=== PATIENT | female | born 1945 | race Caucasian/White ===

== ENCOUNTER 2016-11-11 08:46 | Emergency (ER) | payer MEDICARE, OTHER ==
[2016-11-11 08:59] VITALS: TEMP 97.9
[2016-11-11] MEDS ORDERED: SODIUM CHLORIDE 0.9% (FLUSH) 10 ML SYG IV PRN (09:48)
--- NOTE | 2016-11-11 09:48 | ED.PDOC ---
History of Present Illness - General Chief Complaint: Chest Pain/AR Stated Complaint: chest tightness Time Seen by Provider: 11/11/16 09:41 Source: patient Exam Limitations: no limitations - History of Present Illness Initial Comments: Dulce Clifton 70 y/o female stated that she fell out of a metal chair yesterday and left lower leg hit the metal handle of the chair denies neck/head injury but with pain on left thigh and hips after incident with bruising on the leg left.Then at about 0730 hour this morning felt chest pressure got diaphoretic but no sob which had gotten steady decided to come to emergency room. Timing/Duration: 1-3 hours Severity: moderate Location: substernal Activities at Onset: activity Prior Chest Pain/Cardiac Workup: no prior chest pain, no prior cardiac workup Improving Factors: nothing Worsening Factors: nothing Nitro Today/Relief: no nitro taken today, 0.4 mg x 1, provided by ED Aspirin Treatment Today: no aspirin today, 325 mg x 1, provided by ED Associated Symptoms: diaphoresis Allergies/Adverse Reactions: Allergies Penicillins Allergy (Severe, Verified 11/11/16 10:09) Sulfa Drugs Allergy (Severe, Verified 11/11/16 10:09) Home Medications: Ambulatory Orders Tramadol HCl 50 mg PO Q4HR PRN #20 tab 11/11/16 Review of Systems - Review of Systems Constitutional: States: no symptoms reported EENTM: States: no symptoms reported Respiratory: States: no symptoms reported Cardiology: States: see HPI Gastrointestinal/Abdominal: States: no symptoms reported Genitourinary: States: no symptoms reported Musculoskeletal: States: no symptoms reported Skin: States: no symptoms reported Neurological: States: no symptoms reported Endocrine: States: no symptoms reported Hematologic/Lymphatic: States: no symptoms reported Past Medical History (General) - Patient Medical History Hx Seizures: No Hx Stroke: No Hx Asthma: No Hx of COPD: No Hx Cardiac Disorders: No Hx Congestive Heart Failure: No Hx Pacemaker: No Hx Hypertension: No Hx Diabetes: No Hx MRSA: No Surgical History: cholecystectomy, other - hysterectomy,breast augmentation - Vaccination History Hx Influenza Vaccination: No Hx Pneumococcal Vaccination: Yes - Social History Hx Tobacco Use: Yes - quit 40 years ago Hx Alcohol Use: No Hx Substance Use: No Hx Physical Abuse: No Hx Emotional Abuse: No - Activities of Daily Living Patient Lives Alone: No - family Grooming Ability: Independent Eating (Feeding) Ability: Independent Toileting Ability: Independent Family Medical History - Family History Mother Living Status: Hx Family Asthma: Yes - copd-mom Hx Cardiac Disease: Yes - dad-CAD Physical Exam - Physical Exam General Appearance: Alert, Comfortable, No apparent distress Eyes, Ears, Nose, Throat Exam: PERRL/EOMI, normal ENT inspection, TMs normal, pharynx normal Neck: non-tender, full range of motion, supple Respiratory: chest non-tender, lungs clear, normal breath sounds, no respiratory distress Cardiovascular/Chest: normal peripheral pulses, regular rate, rhythm, no edema, no gallop, no murmur Peripheral Pulses: radial,right: 1+, radial,left: 1+ Gastrointestinal/Abdominal: normal bowel sounds, non tender, soft, no organomegaly Extremity: normal range of motion, non-tender, no pedal edema, no calf tenderness Neurologic: no motor/sensory deficits, alert, normal mood/affect, oriented x 3 Skin Exam: warm/dry, rash - ecchymosys left bttocks and thigh Progress - Progress Progress: 11/11/16 10:04 Vital Signs - 8 hr 11/11/16 11/11/16 08:55 09:49 Temperature 97.9 F Pulse Rate 85 Pulse Rate [ 90 89 Right Brachial] Respiratory 16 Rate Blood Pressure 128/74 [Right Arm] O2 Sat by Pulse 97 Oximetry - Results/Orders Results/Orders: 11/11/16 09:48 Telemetry .ONCE EKG Stat Pulse Ox Stat Pulse Oximetry Assessment DAILY 11/11/16 09:55 B-TYPE NATRIURETIC PEPTIDE/BNP Stat CARDIAC PANEL,ER Stat HEPATIC FUNCTION PANEL Stat 11/11/16 10:04 Femur,Left [RAD] Stat Hip,Right 2 Views [RAD] Stat Pelvis [RAD] Stat 11/11/16 10:15 Hip,Left 2 Views [RAD] Stat Laboratory Results - last 24 hr 11/11/16 11/11/16 09:54 09:55 WBC 6.8 RBC 4.99 Hgb 14.8 Hct 44.2 MCV 88.6 MCH 29.8 MCHC 33.6 RDW 12.9 Plt Count 214 MPV 8.7 Absolute Neuts (auto) 4.80 Absolute Lymphs (auto) 1.50 Absolute Monos (auto) 0.40 Absolute Eos (auto) 0.10 Absolute Basos (auto) 0.00 Neutrophils % 70.9 Lymphocytes % 21.4 Monocytes % 6.2 Eosinophils % 0.9 L Basophils % 0.6 PT 10.5 INR 0.930 PTT (SP) 30.7 D-Dimer, Quantitative < 230 Sodium 141 Potassium 3.8 Chloride 106 Carbon Dioxide 27 Anion Gap 11.8 L BUN 11 Creatinine 0.45 L BUN/Creatinine Ratio 24.4 H Random Glucose 98 Serum Osmolality 280.6 Calcium 9.0 Magnesium 2.3 Total Bilirubin 0.9 Direct Bilirubin 0.1 Indirect Bilirubin 0.8 AST 17 ALT 11 Alkaline Phosphatase 61 Creatine Kinase 189 H Serum Total Protein 7.1 Albumin 4.3 Laboratory Tests 11/11/16 11/11/16 11/11/16 09:54 09:55 10:40 WBC 6.8 RBC 4.99 Hgb 14.8 Hct 44.2 MCV 88.6 MCH 29.8 MCHC 33.6 RDW 12.9 Plt Count 214 MPV 8.7 Absolute Neuts (auto) 4.80 Absolute Lymphs (auto) 1.50 Absolute Monos (auto) 0.40 Absolute Eos (auto) 0.10 Absolute Basos (auto) 0.00 Neutrophils % 70.9 Lymphocytes % 21.4 Monocytes % 6.2 Eosinophils % 0.9 L Basophils % 0.6 PT 10.5 INR 0.930 PTT (SP) 30.7 D-Dimer, Quantitative < 230 Sodium 141 Potassium 3.8 Chloride 106 Carbon Dioxide 27 Anion Gap 11.8 L BUN 11 Creatinine 0.45 L BUN/Creatinine Ratio 24.4 H Random Glucose 98 Serum Osmolality 280.6 Calcium 9.0 Magnesium 2.3 Total Bilirubin 0.9 Direct Bilirubin 0.1 Indirect Bilirubin 0.8 AST 17 ALT 11 Alkaline Phosphatase 61 Creatine Kinase 189 H CK-MB (CK-2) 1.9 CK-MB (CK-2) % Not Reportable Troponin I < 0.02 < 0.02 B-Natriuretic Peptide Cancelled Serum Total Protein 7.1 Albumin 4.3 - EKG/XRAY/CT EKG: Sinus Comments: heart rate [address] XRAY: chest - scarring no acute changes,left hip,pelvis,femur-no fractures noted Departure - Departure Clinical Impression: Chest discomfort Fall (on) (from) unspecified stairs and steps, initial encounter Qualifiers: Encounter type: initial encounter Qualified Code(s): W10.9XXA - Fall (on) (from ) unspecified stairs and steps, initial encounter Contusion of left lower extremity Qualifiers: Encounter type: initial encounter Qualified Code(s): S80.12XA - Contusion of left lower leg, initial encounter Time of Disposition: 12:01 Disposition: Discharge to Home or Self Care Condition: Good Departure Forms: ED Discharge - Pt. Copy, Patient Portal Self Enrollment Referrals: Lorezno Fihser III, MD [Primary Care Provider] - 1-2 Weeks Prescriptions: Tramadol HCl 50 mg PO Q4HR PRN #20 tab PRN Reason: Pain Home Medications: Ambulatory Orders Tramadol HCl 50 mg PO Q4HR PRN #20 tab 11/11/16 Additional Instructions: RETURN TO EMERGENCY ROOM NEEDED;FOLLOW UP WITH PRIMARY MD 11/12/2016 call for appointment
[2016-11-11] MEDS ORDERED: ASPIRIN (CHEWABLE) 81 MG TAB PO ONE (10:06)
--- NOTE | 2016-11-11 10:18 | RAD ---
EXAM DESCRIPTION: Chest,1 View CLINICAL HISTORY: 70 years Female, chest tightness COMPARISON: January 23, 2014, prior CT examination 03/16/2007 TECHNIQUE: AP portable chest. FINDINGS: Single view of the chest demonstrates chronic mild scarring in the right apical region and coarsened markings in the lung bases but very little change in comparison to previous 2014 study. Extensive pleural-parenchymal scarring in this location is evident on remote [address] and to a lesser extent in the left apical region. Heart size is normal with tortuous aortic arch with normal vascularity. No dense infiltrates or pleural effusions are noted. Some hilar retraction in a cephalad fashion consistent with apical scarring is evident but unchanged from prior remote study. IMPRESSION: Stable chest with apical pleural parenchymal scarring right greater than left but little changed from prior remote plain film and chest CTs consistent with old scarring and volume loss in the upper lung [place]. No acute cardiopulmonary decompensation is seen. Electronically signed by: Salvador Ball MD 11/11/2016 10:17 AM CDT
--- NOTE | 2016-11-11 10:36 | RAD ---
EXAM DESCRIPTION: Femur,Left CLINICAL HISTORY: 70 years Female, fall COMPARISON: None. FINDINGS: The femur is intact without fracture or dislocation. No foreign body is noted. The visualized portions of the hip and knee are unremarkable. IMPRESSION: Normal examination. Electronically signed by: Salvador Ball MD 11/11/2016 10:35 AM CDT
--- NOTE | 2016-11-11 10:38 | RAD ---
EXAM DESCRIPTION: Pelvis CLINICAL HISTORY: 70 years Female, fall COMPARISON: None. FINDINGS: The bony pelvic ring is intact with no evidence of soft tissue mass or disruption of the SI joints or symphysis pubis. The pubic initial rami and iliac wings appear intact. IMPRESSION: Renal examination. Electronically signed by: Salvador Ball MD 11/11/2016 10:37 AM CDT
--- NOTE | 2016-11-11 10:39 | RAD ---
EXAM DESCRIPTION: Hip,Left 2 Views CLINICAL HISTORY: pain COMPARISON: None Available. TECHNIQUE: AP/frog leg lateral FINDINGS: There is no bone, joint, or soft tissue abnormality. The hip is normally aligned without fracture or deformity or severe degenerative changes IMPRESSION: Normal study Electronically signed by: Salvador Ball MD 11/11/2016 10:37 AM CDT
[2016-11-11 12:34] VITALS: BP 108/64
[2016-11-11 17:41] VITALS: O2SAT 97
== END 2016-11-11 12:15 | disposition home or self-care (01) ==
LOC: ER 08:46
DX: R07.89 Other chest pain (principal); S80.12XA Contusion of left lower leg, initial encounter; Z88.0 Allergy status to penicillin; Z88.2 Allergy status to sulfonamides; Z87.891 Personal history of nicotine dependence; W07.XXXA Fall from chair, initial encounter; Y92.9 Unspecified place or not applicable

== ENCOUNTER → 2016-12-11 | Outpatient (CLI) | payer MEDICARE, OTHER | END | disposition home or self-care (01) | LOC: GMAL 11:00 | PROVIDERS: ATTEND Family Medicine | DX: D51.3 Other dietary vitamin B12 deficiency anemia (principal); R53.82 Chronic fatigue, unspecified; E55.9 Vitamin D deficiency, unspecified ==

== ENCOUNTER → 2017-09-26 | Outpatient (CLI) | payer MEDICARE, OTHER | LOC: GMATM 13:46 | PROVIDERS: ATTEND Nurse Practitioner Family | DX: N30.00 Acute cystitis without hematuria (principal) ==

== ENCOUNTER → 2017-11-10 | Outpatient (CLI) | payer MEDICARE, OTHER | LOC: GMATM 17:00 | PROVIDERS: ATTEND Nurse Practitioner Family | DX: R30.0 Dysuria (principal) ==

== ENCOUNTER → 2018-02-04 | Outpatient (CLI) | payer MEDICARE, OTHER | LOC: GMAL 13:01 | PROVIDERS: ATTEND Family Medicine | DX: D51.3 Other dietary vitamin B12 deficiency anemia (principal); R53.82 Chronic fatigue, unspecified; E55.9 Vitamin D deficiency, unspecified ==

== ENCOUNTER 2018-08-16 05:33 | Day surgery (SDC) | payer MEDICARE, OTHER ==
[2018-08-16] MEDS ORDERED: MIDAZOLAM INJ 2 MG/2 ML VIAL ONE (11:01)
[2018-08-16] MEDS ORDERED: PROPARACAINE 0.5% OPHTH SOL 15 ML BTTL LEFT_EYE ONE (11:02)
[2018-08-16] MEDS ORDERED: LIDOCAINE 1% 2 ML VIAL INJ ONE (11:17)
[2018-08-16] MEDS ORDERED: DEXAMETHASONE 0.1% OPHTH SOL 1 DROP LEFT_EYE ONE ×2 (11:22→11:35)
[2018-08-16] MEDS ORDERED: MOXIFLOXACIN HCL (OPHTH) 1 DROP DROPS LEFT_EYE ONE ×2 (11:22→11:34)
[2018-08-16] MEDS ORDERED: BRIMONIDINE 0.2% OPHTH DROPS LEFT_EYE ONE ×2 (11:23→11:35)
[2018-08-16] MEDS ORDERED: TOBRAMYCIN SULF 0.3 % OPHT SOL 1 DROP LEFT_EYE ONE ×2 (11:23→11:35)
[2018-08-16] MEDS ORDERED: TROP 1%/CYCLOPEN 1%/PHENYL 2% DROPS OPHTH ONE (11:30)
== END 2018-08-16 12:16 | disposition home or self-care (01) ==
LOC: AMB 05:33
PROVIDERS: ATTEND Ophthalmology
DX: H25.12 Age-related nuclear cataract, left eye (principal); Z88.0 Allergy status to penicillin; Z88.2 Allergy status to sulfonamides; Z79.899 Other long term (current) drug therapy
CPT/HCPCS: 00142; 66984; J2250

== ENCOUNTER → 2019-02-16 | Outpatient (CLI) | payer MEDICARE, OTHER | LOC: GMAL 11:32 | PROVIDERS: ATTEND Family Medicine | DX: R53.82 Chronic fatigue, unspecified (principal); E55.9 Vitamin D deficiency, unspecified; Z79.899 Other long term (current) drug therapy ==

== ENCOUNTER → 2019-02-23 | Outpatient (CLI) | payer MEDICARE, OTHER ==
--- NOTE | 2019-02-23 10:03 | CT ---
EXAM DESCRIPTION: Chest w/wo Contrast CLINICAL HISTORY: Other nonspecific abnormal finding of lung field COMPARISON: October 18, 2007 TECHNIQUE: Chest CT was performed without and with IV contrast. This exam was performed according to our departmental dose-optimization program, which includes automated exposure control, adjustment of the mA and/or kV according to patient size and/or use of iterative reconstruction technique. FINDINGS: Pre-IV contrast images show minimal coronary artery calcification. Small bilateral breast implants with capsular calcification. Postcontrast images show no thyroid thoracic inlet abnormality. No thoracic aortic aneurysm or dissection. The main pulmonary artery is not dilated. No mediastinal or hilar adenopathy. No pleural or pericardial effusion. No hiatal hernia or esophageal wall thickening. The central airways are clear. Mild atelectasis or scarring in the lung apices. There is a small area of less well-defined density posteriorly in the superior segment of the left lower lobe which may represent additional atelectasis versus developing pneumonia. There is a small focus of increased density in the lingular segment of left upper lobe with associated bronchiectasis suggesting that this represents scarring with a slightly nodular configuration measuring up to 7 or 8 mm diameter. No additional airspace consolidation. No lung mass. The gallbladder is surgically absent. Probable small cyst in the left hepatic lobe. Visualized portions of the upper abdomen are otherwise unremarkable. Degenerative changes in the thoracic spine at several levels. IMPRESSION: Small focus of increased density in the superior segment of the left lower lobe which could represent either atelectasis or developing pneumonia. Mild subsegmental atelectasis or scarring elsewhere in both lungs including probable atelectasis or scarring in the lingula with a slightly nodular appearance. Follow-up chest CT in 6-12 months is recommended to document stability of this finding. Mild coronary artery disease. Electronically signed by: Shawn Puentes MD 02/23/2019 10:01 AM [facility]
== END ==
LOC: CT 09:05
PROVIDERS: ATTEND Family Medicine
DX: R91.8 Other nonspecific abnormal finding of lung field (principal); J98.11 Atelectasis; I25.10 Atherosclerotic heart disease of native coronary artery without angina pectoris

== ENCOUNTER → 2020-02-28 | Outpatient (CLI) | payer MEDICARE, OTHER | LOC: GMAL 10:32 | PROVIDERS: ATTEND Family Medicine | DX: D51.3 Other dietary vitamin B12 deficiency anemia (principal); E55.9 Vitamin D deficiency, unspecified; R53.82 Chronic fatigue, unspecified; Z79.899 Other long term (current) drug therapy; E78.49 Other hyperlipidemia ==